=== PATIENT | female | born 1995 | race African-American/Black ===

== ENCOUNTER 2018-07-30 17:58 | Emergency (ER) | payer OTHER ==
[2018-07-30 18:08] VITALS: BP 107/40; PULSE 74; TEMP 98; BMI 24.1
--- NOTE | 2018-07-30 18:08 | PDOC ---
Rapid Medical Evaluation Chief Complaint: Non EmpBld/Body Flud Exposure Time Seen by Provider: 07/30/18 18:04 Medical Evaluation: Allergies Allergy/AdvReac Type Severity Reaction Status Date / Time No Known Allergies Allergy Verified 07/30/18 18:05 07/30/18 18:05 22 year old female c/o body fluid exposure to face and hands in the OR during a cystoscopy. patient washed hands and face right of way/ PE: patient alert ox3. A: body fluid exposure P: patient to fast track for further management of care. Discharge Disposition - Diagnosis Patient exposure to body fluids - Referrals - Patient Instructions - Post Discharge Activity Work/School Note: Back to Work
--- NOTE | 2018-07-30 18:33 | PDOC ---
History of Present Illness - General Chief Complaint: Non EmpBld/Body Flud Exposure Stated Complaint: BODY FLUIDS EXPOSURE Time Seen by Provider: 07/30/18 18:04 - History of Present Illness Initial Comments: 07/30/18 18:31 22-year-old female without comorbidities presents for evaluation of body fluid exposure. She works as a vendor in the operating room and was flashed with the saline from the cystoscope on her left cheek. The fluid did not go in her eyes nor her mouth. Past History - Past Medical History Allergies/Adverse Reactions: Allergies Allergy/AdvReac Type Severity Reaction Status Date / Time No Known Allergies Allergy Verified 07/30/18 18:05 COPD: No - Immunization History Immunization Up to Date: Yes - Suicide/Smoking/Psychosocial Hx Smoking History: Never smoked Hx Alcohol Use: No Drug/Substance Use Hx: No Review of Systems - Review of Systems Constitutional: Yes: See HPI *Physical Exam - Vital Signs Last Vital Signs Temp Pulse Resp BP Pulse Ox 98.0 F 74 18 107/40 L 100 07/30/18 18:05 07/30/18 18:05 07/30/18 18:05 07/30/18 18:05 07/30/18 18:05 - Physical Exam Comments: 07/30/18 18:32 HEAD: NC/AT EYES: Conjuntiva clear NEUROLOGIC: No gross sensory or motor deficits, NVID SKIN: Normal color and temperature no lesions or rashes Medical Decision Making - Medical Decision Making 07/30/18 18:32 Patient was offered HIV prophylaxis but declined. This is a low risk exposure she is comfortable to follow up with her primary care physician. *DC/Admit/Observation/Transfer Diagnosis at time of Disposition: Patient exposure to body fluids - Discharge Dispostion Disposition: HOME Condition at time of disposition: Stable Decision to Admit order: No - Referrals - Patient Instructions Printed Discharge Instructions: How to Handle Body Fluid Exposure -- Non- Healthcare Worker (At Home, [facility]gi Additional Instructions: Return to the emergency room should you have any further issues otherwise follow -up with your primary care physician in one to 2 days for further evaluation and treatment options. - Post Discharge Activity Forms/Work/School Notes: Back to Work
== END 2018-07-30 19:06 | disposition home or self-care (01) ==
LOC: JERFT 17:58 → JER 17:58 → JERFT 19:06
DX: Z77.21 Contact with and (suspected) exposure to potentially hazardous body fluids (principal); X58.XXXA Exposure to other specified factors, initial encounter; Y93.89 Activity, other specified; Y92.234 Operating room of hospital as the place of occurrence of the external cause; Y99.0 Civilian activity done for income or pay
CPT/HCPCS: 99281-25